=== PATIENT | female | born 2000 | race Caucasian/White ===

== ENCOUNTER 2025-06-23 08:30 | Emergency (ER) | payer BC, SELFPAY ==
--- NOTE | 2025-06-23 08:31 | ED.ABDPAIN ---
HPI - Abdominal Pain General Chief Complaint: Abdominal Pain Stated Complaint: LOW R ABD PAIN/NAUSEA Time Seen by Provider: 06/23/25 08:31 Source: patient Mode of arrival: ambulatory Limitations: no limitations History of Present Illness HPI narrative: Kimberly is a 25-year-old female patient presenting to the clinic today with complaints of right lower quadrant abdominal pain and nausea that started last night. She reports pain is sharp, constant, and is rating at a 7/10 currently. Has not taken any medications for her symptoms. Denies any fevers, chills, body aches. Last menstrual period was June 06, 2025. Denies any urinary symptoms. She is sexually active. Last bowel movement was mid day yesterday and normal for the patient. No past abdominal/pelvic history. Related Data Home Medications ?Medication ?Instructions ?Recorded ?Confirmed ?Last Taken ?Type No Home Medications 06/23/25 06/23/25 Unknown History Allergies Allergy/AdvReac Type Severity Reaction Status Date / Time amoxicillin (From Augmentin) Allergy Intermediate Hives Verified 06/23/25 08:46 clavulanic acid (From Allergy Intermediate Hives Verified 06/23/25 08:46 Augmentin) Review of Systems Review of Systems: Pertinent positives per HPI. Patient denies any fever, chills, rash, headache, visual changes, dizziness, cough, runny nose, sore throat, shortness of breath, chest pain, palpitations, vomiting, diarrhea, constipation, or any urinary issues. PMFSH Comments At the time of my signature, I reviewed and agree with the nursing past medical, surgical, social, and family history. There is no relevant family history pertinent to the patient complaint. Exam Narrative: General: Well-developed, well nourished, in no apparent distress. Head: Normocephalic, atraumatic. Cardio: Regular rate and rhythm, s1 and s2 normal, no murmur appreciated. Resp: Clear to auscultation bilaterally, no rhonchi, rales, wheezing or rubs. Abdomen: Soft, pliable, bowel sounds present in all quadrants, + McBurney sign, + Roving, negative psoas, mild tenderness to palpation over the RUQ and LUQ, no organomegly, no CVAT tenderness. Course Course Emergency Course: Portions of this record may have been created with voice recognition software. Level of Care: Express Care Visit Vital Signs Vital signs: Vital Signs Temperature 36.7 C 06/23/25 08:39 Pulse Rate 104 H 06/23/25 08:39 Respiratory Rate 16 06/23/25 08:39 Blood Pressure 100/81 06/23/25 08:39 Pulse Oximetry 100 06/23/25 08:39 Oxygen Delivery Room Air 06/23/25 08:39 Temperature 36.7 C 06/23/25 08:39 Pulse Rate 104 H 06/23/25 08:39 Respiratory Rate 16 06/23/25 08:39 Blood Pressure 100/81 06/23/25 08:39 Pulse Oximetry 100 06/23/25 08:39 Oxygen Delivery Room Air 06/23/25 08:39 Vital signs reviewed Transfer Transfered to: Other ([place], [place]) Transportation: Other (Private car) Transfer rationale: RLQ abdomen pain/ nausea- R/o appy Accepting physician: Dr. Coelho Transfer comments: Private car- remain NPO MDM - Abdominal Pain MDM Narrative Medical decision making narrative: At the time of visit patient is resting comfortably on the exam table. Patient appears to be nontoxic. Complaints of right lower quadrant abdominal pain and nausea that started last night. She reports pain is sharp, constant, and is rating at a 7/10 currently. Has not taken any medications for her symptoms. Denies any fevers, chills, body aches. Last menstrual period was June 06, 2025. Is sexually active. Denies any urinary symptoms. Last bowel movement was mid day yesterday and normal for the patient. No past abdominal/pelvic history. Upon exam patient has nausea with + McBurney sign, + Roving, negative psoas, mild tenderness to palpation over the RUQ and LUQ, no organomegly, no CVAT tenderness. Plan: Recommend transfer to the emergency room to rule out appendicitis. Patient agrees to transfer and would like to go to [place], [place] emergency room. Contacted Dr. Coelho at [facility] and he accepts patient for transfer. Patient remained NPO-to drive per private car. Differential Diagnosis Differential diagnosis: Likely abdominal pain, acute appendicitis, constipation, endometriosis (ovarian cyst, ectopic ), gastroenteritis and small bowel obstruction Discharge Plan Discharge Clinical Impression: Right lower quadrant abdominal pain, Nausea Patient Disposition: Acute Care Hospital Condition: Stable Instructions: Antibiotic Form Patient Language: Yoruba Prescriptions: No Action No Home Medications Follow-up/Referrals: Shirlene,Taran Chen MD [Primary Care Provider] - Time of Disposition: 09:02 Quality NIHSS Nursing Documentation ED NIHSS nursing documentation: reviewed/agree
[2025-06-23 08:39] VITALS: BP 100/81; PULSE 104; RESP 16; TEMP 36.7; O2SAT 100
== END 2025-06-23 08:54 | disposition short-term general hospital (02) ==
PROVIDERS: Emergency Provider Nurse Practitioner Family; PCP Family Medicine Sports Medicine
DX: R10.31 Right lower quadrant pain (principal); R11.0 Nausea
CPT/HCPCS: 99202; G0463